=== PATIENT | female | born 1940 | race Two or more races ===

== ENCOUNTER 2018-06-28 13:48 | Outpatient (CLI) | payer OTHER | END 2018-06-28 13:51 | disposition home or self-care (01) | LOC: RAD 13:48 | DX: S39.93XA Unspecified injury of pelvis, initial encounter (principal) ==

== ENCOUNTER 2018-07-06 12:23 | Outpatient (CLI) | payer OTHER | END 2018-07-06 12:28 | disposition home or self-care (01) | LOC: SONOGRAMA 12:23 | DX: N60.11 Diffuse cystic mastopathy of right breast (principal); N60.12 Diffuse cystic mastopathy of left breast; N63.22 Unspecified lump in the left breast, upper inner quadrant ==